=== PATIENT | male | born 1995 | race Caucasian/White ===

== ENCOUNTER 2023-05-20 07:44 | Emergency (ER) | payer OTHER ==
[~2023-05-20] VITALS: Ht 185.4 cm; Wt 87.0 kg
[2023-05-20 07:47] VITALS: BP 115/77; PULSE 120; RESP 12; TEMP 99.3; O2SAT 97
[2023-05-20] MEDS ORDERED: IBUP-2029 MT (11:33)
== END 2023-05-20 11:49 | disposition home or self-care (01) ==
LOC: ER 07:44
DX: J02.9 Acute pharyngitis, unspecified (principal); Z20.822 Contact with and (suspected) exposure to COVID-19
CPT/HCPCS: 87070; 87426; 87430; 87804; 99283